=== PATIENT | male | born 1960 | race African-American/Black ===

== ENCOUNTER 2021-02-25 16:33 | Inpatient (IN) | payer OTHER ==
[~2021-02-25] VITALS: Ht 172.7 cm; Wt 99.9 kg
[2021-02-25 18:16] LABS: BASOPHILS % 1.2 % (0.0-2.0); EOSINOPHILS % 2.2 % (0.0-5.0); HEMATOCRIT. 43.9 % (42.0-52.0); HEMOGLOBIN. 14.4 g/dL (14.0-18.0); LYMPHOCYTES % 30.7 % (20.0-50.0); MEAN CORPUSCULAR VOLUME 94.4 fL (80.0-94.0); NEUTROPHILS % 58.9 % (40.0-76.0); PLATELET 177 x1000/uL (130-400); RED BLOOD CELL COUNT 4.65 mill/uL (4.7-6.1)
[2021-02-25 18:29] LABS: CHLORIDE 111 mEq/L (98-107)
[2021-02-26 08:30] VITALS: BP 98/54
[2021-02-26 10:00] VITALS: BP 98/54
[2021-02-26 12:00] VITALS: BP 170/98
[2021-02-26] MEDS: LISINOPRIL 5MG TABLET PO SCH (12:35)
[2021-02-26 16:00] VITALS: BP 137/74
[2021-02-26] MEDS ORDERED: ONDANSETRON HCL 4MG/2ML INJ IV PRN (16:00)
[2021-02-26] MEDS ORDERED: ACETAMINOPHEN 325MG TABLET PO PRN (16:00)
[2021-02-26] MEDS ORDERED: LISI-186 MT (17:57)
[2021-02-26 19:45] LABS: *AMPHETAMINES SCREEN URINE NEGATIVE (NEGATIVE); METHADONE URINE SCREEN NEGATIVE (NEGATIVE); OPIATES URINE SCREEN NEGATIVE (NEGATIVE)
[2021-02-26 19:46] LABS: *BARBITURATES SCREEN URINE NEGATIVE (NEGATIVE); *BENZODIAZEPINES SCREEN URINE NEGATIVE (NEGATIVE); *COCAINE SCREEN URINE NEGATIVE (NEGATIVE); CANNABINOID URINE SCREEN PRESUMTIVE POSITIVE (NEGATIVE); PHENCYCLIDINE URINE SCREEN NEGATIVE (NEGATIVE)
[2021-02-26 20:00] VITALS: BP_SYST 115; BP_SYST 119; BP_DIAS 80
[2021-02-26] MEDS ORDERED: TAMSULOSIN HCL 0.4MG SR CAPSULE PO SCH (21:00)
[2021-02-27] VITALS: BP 122/80
[2021-02-27 04:00] VITALS: BP 119/84
[2021-02-27] MEDS: LISINOPRIL 5MG TABLET PO SCH (10:05)
[2021-02-27 12:00] VITALS: BP 116/88
[2021-02-27 15:05] VITALS: BP 116/88
== END 2021-02-27 17:00 | disposition home or self-care (01) | DRG 48 ==
LOC: ER 16:33 → MICUSO 23:01 → 8WST 02-26 09:48
PROVIDERS: ADMIT Internal Medicine; ATTEND Internal Medicine
DX: G90.8 Other disorders of autonomic nervous system (principal); E87.8 Other disorders of electrolyte and fluid balance, not elsewhere classified; E11.9 Type 2 diabetes mellitus without complications; F31.9 Bipolar disorder, unspecified; I10 Essential (primary) hypertension; N40.0 Benign prostatic hyperplasia without lower urinary tract symptoms; E66.9 Obesity, unspecified; F12.90 Cannabis use, unspecified, uncomplicated; R55 Syncope and collapse; Z68.33 Body mass index [BMI] 33.0-33.9, adult
CPT/HCPCS: 36415; 70551; 71045; 80048; 80305; 80320; 84484; 85025; 93005; 93306; 93880; 99285; G0480